=== PATIENT | female | born 1960 | race Caucasian/White ===

== ENCOUNTER 2020-01-14 08:15 | Emergency (ER) | payer OTHER ==
[~2020-01-14] VITALS: Ht 172.7 cm; Wt 124.7 kg
[2020-01-14 08:19] VITALS: BP 168/95
--- NOTE | 2020-01-14 09:00 | NUR ---
PT SITTING UPRIGHT ON GURNEY, NAD, VSS. PT DENIES ANY NEEDS AT THIS TIME. CALL LIGHT AND PERSONAL BELONGINGS IN REACH. ISOLATION PRECAUTIONS IN PLACE.
--- NOTE | 2020-01-14 09:40 | NUR ---
Patient given discharge instructions and they have confirmed that they understand the instructions. Patient ambulatory with steady gait.
== END 2020-01-14 09:47 | disposition home or self-care (01) ==
LOC: ED 09:02
DX: U07.1 COVID-19 (principal); J06.9 Acute upper respiratory infection, unspecified; E03.9 Hypothyroidism, unspecified
CPT/HCPCS: 71045; 87635; 99284